=== PATIENT | female | born 1975 | race Caucasian/White ===

== ENCOUNTER 2022-10-12 08:13 | Emergency (ER) | payer BC, OTHER ==
[2022-10-12 08:29] VITALS: BP 133/87; PULSE 72; RESP 16; TEMP 98.7; BMI 28.8
== END 2022-10-12 09:50 | disposition home or self-care (01) ==
LOC: FER 08:13
DX: S62.101A Fracture of unspecified carpal bone, right wrist, initial encounter for closed fracture (principal); S42.401A Unspecified fracture of lower end of right humerus, initial encounter for closed fracture; M25.521 Pain in right elbow; M25.531 Pain in right wrist; V00.141A Fall from scooter (nonmotorized), initial encounter
CPT/HCPCS: 73070-TC-RT-FY; 73110-TC-RT-FY; 99283-25